=== PATIENT | female | born 1965 | race Caucasian/White ===

== ENCOUNTER 2020-06-10 23:04 | Emergency (ER) | payer BC ==
[2020-06-10 23:36] LABS: CHLORIDE,CL 102 mmol/L (98-107); SODIUM,NA 137 mmol/L (136-145)
--- NOTE | 2020-06-10 23:59 | EDM.PDOC ---
ED HPI GENERAL MEDICAL PROBLEM - General Chief Complaint: General Stated Complaint: LIGHT HEADED, LOW BACK PAIN Time Seen by Provider: 06/10/20 23:20 Source of Information: Reports: Patient History Limitations: Reports: No Limitations - History of Present Illness INITIAL COMMENTS - FREE TEXT/NARRATIVE: Pt states she felt light headed and had back pain while at work and went home [place] stated she needed seen for a work note. No fever No emesis No SOB NO chest pain No N/V/D No dysuria Onset: Today, Gradual Duration: Hour(s): Location: Reports: Generalized Lower Back Pain Score (Numeric/FACES): 4 Upper Abdomen Pain Score (Numeric/FACES): 5 - Related Data Allergies Allergy/AdvReac Type Severity Reaction Status Date / Time No Known Drug Allergies Allergy Other Verified 06/10/20 23:15 Past Medical History Neurological History: Reports: Neuropathy, Peripheral Psychiatric History: Reports: Depression - Infectious Disease History Infectious Disease History: Reports: Chicken Pox, Influenza - Past Surgical History GI Surgical History: Reports: Bariatric Procedure Neurological Surgical History: Reports: None Social & Family History - Family History Family Medical History: Noncontributory - Tobacco Use Smoking Status *Q: Current Every Day Smoker Years of Tobacco use: 40 Packs/Tins Daily: 0.5 Used Tobacco, but Quit: No - Caffeine Use Caffeine Use: Reports: Coffee, Energy Drinks, Soda, Tea - Recreational Drug Use Recreational Drug Use: No ED ROS GENERAL - Review of Systems Review Of Systems: See Below Constitutional: Reports: Other (Light headed) HEENT: Reports: No Symptoms Respiratory: Reports: No Symptoms Cardiovascular: Reports: No Symptoms GI/Abdominal: Reports: No Symptoms Musculoskeletal: Reports: Back Pain Neurological: Reports: No Symptoms Psychiatric: Reports: No Symptoms ED EXAM, GENERAL - Physical Exam Exam: See Below Exam Limited By: No Limitations General Appearance: No Apparent Distress Neck: Supple Respiratory/Chest: Lungs Clear Cardiovascular: Regular Rate, Rhythm GI/Abdominal: Tender Back Exam: Paraspinal Tenderness Extremities: Normal Inspection Course - Vital Signs Last Recorded V/S: Last Vital Signs Temp 97.3 F 06/10/20 23:17 Pulse 68 06/10/20 23:17 Resp 12 06/10/20 23:17 BP 126/73 06/10/20 23:17 Pulse Ox 100 06/10/20 23:17 - Orders/Labs/Meds Labs: Laboratory Tests 06/10/20 06/10/20 06/10/20 Range/Units 23:18 23:18 23:43 WBC 7.3 (4.0-10.2) K/uL RBC 4.25 (3.77-5.09) M/uL Hgb 13.1 (11.7-15.5) g/dL Hct 38.7 (34.0-46.0) % MCV 91.1 (84.0-98.0) fL MCH 30.8 (28.2-33.3) pg MCHC 33.9 (31.7-36.0) g/dL RDW 12.7 (11.2-14.1) % Plt Count 276 (150-350) K/uL Neut % (Auto) 56.5 (45.0-80.0) % Lymph % (Auto) 34.1 (10.0-50.0) % [place] % (Auto) 6.5 (2.0-14.0) % Eos % (Auto) 2.2 (0.0-5.0) % Baso % (Auto) 0.7 (0.0-2.0) % Neut # (Auto) 4.11 (1.40-7.00) K/uL Lymph # (Auto) 2.48 (0.50-3.50) K/uL [place] # (Auto) 0.47 (0.00-1.00) K/uL Eos # (Auto) 0.16 (0.00-0.50) K/uL Baso # (Auto) 0.05 (0.00-0.20) K/uL Sodium 137 (136-145) mmol/L Potassium 3.7 (3.5-5.1) mmol/L Chloride 102 (98-107) mmol/L Carbon Dioxide 26.8 (21.0-32.0) mmol/L BUN 13 (7-18) mg/dL Creatinine 0.56 (0.51-1.17) mg/dL Est Cr Clr Drug Dosing 104.54 mL/min Estimated GFR (MDRD) > 60 mL/min Glucose 104 (74-106) mg/dL Calcium 8.9 (8.5-10.1) mg/dL Specimen Type Urincc Urine Color Yellow Urine Appearance Clear Urine pH 5.0 (5.0-9.0) Ur Specific [place] 1.025 (1.005-1.030) Urine Protein Negative (NEGATIVE) mg/dL Urine Glucose (UA) Negative (NEGATIVE) mg/dL Urine Ketones Negative (NEGATIVE) mg/dL Urine Occult Blood Negative (NEGATIVE) Urine Nitrite Negative (NEGATIVE) Urine Bilirubin Negative (NEGATIVE) Urine Urobilinogen 0.2 (0.2-1.0) E.U./dL Ur Leukocyte Esterase Negative (NEGATIVE) - Re-Assessments/Exams Free Text/Narrative Re-Assessment/Exam: 06/10/20 23:56 Pt stable in ER Departure - Departure Time of Disposition: 23:55 Disposition: Home, Self-Care 01 Clinical Impression: Light headed - Discharge Information *PRESCRIPTION DRUG MONITORING PROGRAM REVIEWED*: Not Applicable *COPY OF PRESCRIPTION DRUG MONITORING REPORT IN PATIENT FRANCISCO: Not Applicable Instructions: Near-Syncope, [id number] Referrals: PCP,None [Primary Care Provider] - Additional Instructions: Diet as tolerated Encourage fluids Follow up in clinic Sepsis Event Note (ED) - Evaluation Sepsis Screening Result: No Definite Risk - Focused Exam Vital Signs: Vital Signs Temp Pulse Resp BP Pulse Ox 06/10/20 23:17 97.3 F 68 12 126/73 100
== END 2020-06-11 00:05 | disposition home or self-care (01) ==
LOC: LL.ED 23:04
DX: R42 Dizziness and giddiness (principal); G62.9 Polyneuropathy, unspecified; F17.210 Nicotine dependence, cigarettes, uncomplicated
CPT/HCPCS: 36415; 80048; 81003; 85025; 99283; 99284

== ENCOUNTER 2024-06-10 18:44 | Emergency (ER) | payer BC ==
[2024-06-10] MEDS: Lidocaine 2% with EPINEPHrine 1:100,000 20 ML MDV INJECT ONE (19:02)
[2024-06-10] MEDS: Bacitracin Oint 1 GM U/D Packet TOP ONE (19:02)
[2024-06-10] MEDS: Diphtheria,Pertussis(Acell),Tetanus Vaccine 0.5 ML Syringe IM ONE (20:48)
== END 2024-06-10 21:00 | disposition home or self-care (01) ==
LOC: LL.ED 18:44
DX: S01.81XA Laceration without foreign body of other part of head, initial encounter (principal); Z23 Encounter for immunization; F17.210 Nicotine dependence, cigarettes, uncomplicated; W19.XXXA Unspecified fall, initial encounter
CPT/HCPCS: 12015; 90471; 90715; 99282-25; 99283; J3490